=== PATIENT | female | born 1985 | race Caucasian/White ===

== ENCOUNTER 2022-09-22 23:59 | Emergency (ER) | payer OTHER ==
[2022-09-23 00:12] VITALS: TEMP 99.5
[2022-09-23 01:20] LABS: Basophils % (A) 0 %; Eosinophils # (A) 0.1 k/uL (0-0.7); Eosinophils % (A) 1 %; HCT 34.8 % (34.0-46.0); HGB 11.7 gm/dL (11.4-16.0); Hypochromasia Slight; Lymphocytes # (A) 0.9 k/uL (1.0-4.8); Lymphocytes % (A) 10 %; MCH 35.9 pg (25.0-35.0); MCHC 33.7 g/dL (31.0-37.0); MCV 106.6 fL (80.0-100.0); Macrocytosis Moderate; Mean Platelet Volume 8.4; Monocytes # (A) 0.2 k/uL (0-1.0); Monocytes % (A) 3 %; Neutrophils # (A) 7.5 k/uL (1.3-7.7); Neutrophils % (A) 85 %; Platelet Count 183 k/uL (150-450); RBC 3.27 m/uL (3.80-5.40); WBC 8.8 k/uL (3.8-10.6)
[2022-09-23 01:30] LABS: ALT 27 U/L (4-34); AST 57 U/L (14-36); African American GFR (CKD) >90 (>60 ml/min/1.73 sqM); Albumin 2.4 g/dL (3.5-5.0); Alkaline Phosphatase 138 U/L (38-126); Anion Gap 4 mmol/L; Blood Urea Nitrogen 3 mg/dL (7-17); Calcium 7.8 mg/dL (8.4-10.2); Carbon Dioxide 24 mmol/L (22-30); Chloride 108 mmol/L (98-107); Glucose 101 mg/dL (74-99); Non-African American GFR(CKD) >90 (>60 ml/min/1.73 sqM); Potassium 3.2 mmol/L (3.5-5.1); Sodium 136 mmol/L (137-145); Total Bilirubin 0.7 mg/dL (0.2-1.3); Total Protein 5.3 g/dL (6.3-8.2)
--- NOTE | 2022-09-23 03:04 | ED ---
General Adult HPI - General Chief complaint: Dizziness Stated complaint: Pain in legs, Near Syncope, Nausea Time Seen by Provider: 09/23/22 00:23 Source: patient Mode of arrival: ambulatory Limitations: no limitations - History of Present Illness Initial comments: This patient is a 37-year-old woman who comes here from [facility] to have evaluation for bilateral leg edema and also dizziness. Patient states that the symptoms have been going on for couple of weeks. She had initially placed on Lasix, which may have the briefly but Lasix. She noted it recurred. No chest pain or dyspnea. The patient is at [place] for alcohol use. -: week(s) Location: left, right, lower extremity Consistency: constant Improves with: none Worsens with: none - Related Data Previous Rx's Medication Instructions Recorded Furosemide [Lasix] 10 mg PO DAILY PRN #15 tab 09/23/22 Potassium Chloride ER [K-Dur 20] 20 meq PO DAILY #20 tab 09/23/22 Allergies Allergy/AdvReac Type Severity Reaction Status Date / Time Iodinated Contrast Media Allergy Unknown Verified 09/23/22 00:05 metoclopramide [From Reglan] Allergy Unknown Verified 09/23/22 00:05 Review of Systems ROS Statement: Those systems with pertinent positive or pertinent negative responses have been documented in the HPI. ROS Other: All systems not noted in ROS Statement are negative. Constitutional: Denies: fever, chills, weakness Eyes: Denies: vision change Respiratory: Denies: cough, dyspnea Cardiovascular: Reports: edema, syncope (near-syncope). Denies: chest pain, palpitations, orthopnea Gastrointestinal: Reports: nausea. Denies: abdominal pain, vomiting, diarrhea Genitourinary: Denies: dysuria, hematuria Musculoskeletal: Denies: back pain Skin: Denies: rash Neurological: Denies: headache, weakness Past Medical History Additional Past Medical History / Comment(s): Pancreatitis pancreatic duct stenosis Additional Past Surgical History / Comment(s): pancreatic duct stents Past Psychological History: Anxiety, Depression Smoking Status: Current every day smoker Past Alcohol Use History: Daily, Heavy Past Drug Use History: Prescription Drug Abuse General Exam Limitations: no limitations General appearance: alert, in no apparent distress Head exam: Present: atraumatic, normocephalic Eye exam: Present: normal appearance. Absent: scleral icterus, conjunctival injection Respiratory exam: Present: normal lung sounds bilaterally. Absent: respiratory distress, wheezes, rales, rhonchi, stridor, chest wall tenderness Cardiovascular Exam: Present: regular rate, normal rhythm, normal heart sounds. Absent: systolic murmur, diastolic murmur, rubs, gallop GI/Abdominal exam: Present: soft. Absent: distended, tenderness, guarding, rebound, rigid Extremities exam: Present: normal capillary refill, pedal edema. Absent: calf tenderness Back exam: Present: normal inspection. Absent: CVA tenderness (R), CVA tenderness (L) Neurological exam: Present: alert Skin exam: Present: warm, dry, intact, normal color. Absent: rash Course Vital Signs 09/23/22 00:05 Temperature 99.5 F Pulse Rate 109 H Respiratory 18 Rate Blood Pressure 111/67 O2 Sat by Pulse 98 Oximetry Medical Decision Making - Lab Data Result diagrams: 09/23/22 01:10 09/23/22 01:10 Lab Results 09/23/22 09/23/22 09/23/22 Range/Units 01:10 01:10 01:10 WBC 8.8 (3.8-10.6) k/uL RBC 3.27 L (3.80-5.40) m/uL Hgb 11.7 (11.4-16.0) gm/dL Hct 34.8 (34.0-46.0) % MCV 106.6 H (80.0-100.0) fL MCH 35.9 H (25.0-35.0) pg MCHC 33.7 (31.0-37.0) g/dL RDW 15.0 (11.5-15.5) % Plt Count 183 (150-450) k/uL MPV 8.4 Neutrophils % 85 % Lymphocytes % 10 % Monocytes % 3 % Eosinophils % 1 % Basophils % 0 % Neutrophils # 7.5 (1.3-7.7) k/uL Lymphocytes # 0.9 L (1.0-4.8) k/uL Monocytes # 0.2 (0-1.0) k/uL Eosinophils # 0.1 (0-0.7) k/uL Basophils # 0.0 (0-0.2) k/uL Hypochromasia Slight Macrocytosis Moderate Sodium 136 L (137-145) mmol/L Potassium 3.2 L (3.5-5.1) mmol/L Chloride 108 H (98-107) mmol/L Carbon Dioxide 24 (22-30) mmol/L Anion Gap 4 mmol/L BUN 3 L (7-17) mg/dL Creatinine 0.50 L (0.52-1.04) mg/dL Est GFR (CKD-EPI)AfAm >90 (>60 ml/min/1.73 sqM) Est GFR (CKD-EPI)NonAf >90 (>60 ml/min/1.73 sqM) Glucose 101 H (74-99) mg/dL Calcium 7.8 L (8.4-10.2) mg/dL Total Bilirubin 0.7 (0.2-1.3) mg/dL AST 57 H (14-36) U/L ALT 27 (4-34) U/L Alkaline Phosphatase 138 H (38-126) U/L NT-Pro-B Natriuret Pep 603 pg/mL Total Protein 5.3 L (6.3-8.2) g/dL Albumin 2.4 L (3.5-5.0) g/dL Disposition Clinical Impression: Edema, Hypoalbuminemia Disposition: HOME SELF-CARE Condition: Good Instructions (If sedation given, give patient instructions): Leg Edema (ED) Prescriptions: Potassium Chloride ER [K-Dur 20] 20 meq PO DAILY #20 tab Furosemide [Lasix] 10 mg PO DAILY PRN #15 tab PRN Reason: Edema Is patient prescribed a controlled substance at d/c from ED?: No Referrals: None,Stated [Primary Care Provider] - 1-2 days
[2022-09-23 03:24] VITALS: BP 129/74; PULSE 74; RESP 15
== END 2022-09-23 03:23 | disposition home or self-care (01) ==
LOC: EC 23:59
DX: R60.9 Edema, unspecified (principal); E88.09 Other disorders of plasma-protein metabolism, not elsewhere classified; F41.9 Anxiety disorder, unspecified; F17.200 Nicotine dependence, unspecified, uncomplicated; F10.10 Alcohol abuse, uncomplicated; Z79.899 Other long term (current) drug therapy; Z91.041 Radiographic dye allergy status; Z88.8 Allergy status to other drugs, medicaments and biological substances
CPT/HCPCS: 36415; 80053; 83880; 85025; 99284